=== PATIENT | female | born 1965 | race Hispanic/Latino ===

== ENCOUNTER 2021-03-02 19:25 | Observation (INO) | payer OTHER ==
--- NOTE | 2021-03-02 19:36 | Emergency Department Report ---
HPI - General Time Seen by Provider: 03/02/21 19:27 - HPI HPI: 55-year-old female with reported history of prior CVA with memory difficulties and a heart monitor for unknown reasons is brought in as a stroke alert by EMS. Her last known well time was at 5:30 PM. Apparently the patient developed ataxia, slurred speech and then started to have blinking on the left side with a left-sided droop and gaze deviation to the left. The patient is unable to communicate but can follow commands. Further details of the HPI are thus limited due to the patient's current clinical condition. ED Review of Systems ROS: Stated complaint: POSS STROKE Other details as noted in HPI Comment: Unobtainable due to pts medical conditions Physical Exam - Physical Exam Vital Signs: Vital Signs 03/02/21 03/02/21 03/02/21 19:50 20:00 20:05 Temperature 98 F Pulse Rate 76 78 Respiratory 16 18 Rate Blood Pressure Blood Pressure 170/92 [Right] O2 Sat by Pulse 96 96 98 Oximetry 03/02/21 03/02/21 20:16 20:30 Temperature Pulse Rate 79 74 Respiratory 19 17 Rate Blood Pressure 159/125 147/80 Blood Pressure [Right] O2 Sat by Pulse 96 98 Oximetry Physical Exam: GENERAL: Well developed and well nourished. No acute distress HEAD: Normocephalic. No obvious signs of trauma. ENT: Moist mucous membranes. EYES: Pupils are equal round and reactive to light bilaterally. Gaze deviation to the left and up NECK: Supple. Full ROM is intact. Trachea is midline. LUNGS: Nonlabored breathing. Equal chest rise bilaterally. Clear to auscultation bilaterally. CARDIOVASCULAR: Regular rate and rhythm. No murmurs or rubs. VASCULAR: Cap refill < 2 seconds ABDOMEN: Abdomen is soft and nondistended. There is no significant tenderness, guarding or rebound. SKIN: Skin is warm and dry NEURO: Patient is awake and alert. She is conscious and able to follow my commands. She has a left facial droop, twitching/blinking on the left, aphasia, and dysarthria but has normal strength in all 4 extremities and normal sensation. NIH score of 12. Unable to assess gait at this time. MUSCULOSKELETAL: No obvious deformities. No significant tenderness. BACK/SPINE: No midline tenderness or step-offs of the C/T/L spine. ED Medical Decision Making - Lab Data Result diagrams: 03/02/21 19:59 03/02/21 19:59 Lab Results 03/02/21 03/02/21 03/02/21 Range/Units 19:45 19:59 19:59 WBC 7.3 (4.5-11.0) K/mm3 RBC 4.40 (3.65-5.03) M/mm3 Hgb 13.3 (10.1-14.3) gm/dl Hct 39.3 (30.3-42.9) % MCV 90 (79-97) fl MCH 30 (28-32) pg MCHC 34 (30-34) % RDW 15.1 (13.2-15.2) % Plt Count 250 (140-440) K/mm3 Lymph % (Auto) 23.5 (13.4-35.0) % [place] % (Auto) 9.1 H (0.0-7.3) % Eos % (Auto) 3.9 (0.0-4.3) % Baso % (Auto) 1.2 (0.0-1.8) % Lymph # (Auto) 1.7 (1.2-5.4) K/mm3 [place] # (Auto) 0.7 (0.0-0.8) K/mm3 Eos # (Auto) 0.3 (0.0-0.4) K/mm3 Baso # (Auto) 0.1 (0.0-0.1) K/mm3 Seg Neutrophils % 62.3 (40.0-70.0) % Seg Neutrophils # 4.6 (1.8-7.7) K/mm3 PT 14.3 (12.2-14.9) Sec. INR 1.05 (0.87-1.13) APTT 25.4 (24.2-36.6) Sec. Thrombin Time 18.7 (15.1-19.6) Sec. Sodium (137-145) mmol/L Potassium (3.6-5.0) mmol/L Chloride (98-107) mmol/L Carbon Dioxide (22-30) mmol/L Anion Gap mmol/L BUN (7-17) mg/dL Creatinine (0.6-1.2) mg/dL Estimated GFR ml/min BUN/Creatinine Ratio % Glucose (65-100) mg/dL POC Glucose 98 (70-105) mg/dL Calcium (8.4-10.2) mg/dL Total Bilirubin (0.1-1.2) mg/dL AST (5-40) units/L ALT (7-56) units/L Alkaline Phosphatase (35-129) units/L Total Creatine Kinase (30-135) units/L CK-MB (CK-2) (0.0-4.0) ng/mL CK-MB (CK-2) Rel Index (0-4) Troponin T (0.00-0.029) ng/mL Total Protein (6.3-8.2) g/dL Albumin (3.9-5) g/dL Albumin/Globulin Ratio % Plasma/Serum Alcohol (0-0.07) % 03/02/21 03/02/21 03/02/21 Range/Units 19:59 19:59 19:59 WBC (4.5-11.0) K/mm3 RBC (3.65-5.03) M/mm3 Hgb (10.1-14.3) gm/dl Hct (30.3-42.9) % MCV (79-97) fl MCH (28-32) pg MCHC (30-34) % RDW (13.2-15.2) % Plt Count (140-440) K/mm3 Lymph % (Auto) (13.4-35.0) % [place] % (Auto) (0.0-7.3) % Eos % (Auto) (0.0-4.3) % Baso % (Auto) (0.0-1.8) % Lymph # (Auto) (1.2-5.4) K/mm3 [place] # (Auto) (0.0-0.8) K/mm3 Eos # (Auto) (0.0-0.4) K/mm3 Baso # (Auto) (0.0-0.1) K/mm3 Seg Neutrophils % (40.0-70.0) % Seg Neutrophils # (1.8-7.7) K/mm3 PT (12.2-14.9) Sec. INR (0.87-1.13) APTT (24.2-36.6) Sec. Thrombin Time (15.1-19.6) Sec. Sodium 131 L (137-145) mmol/L Potassium 4.0 (3.6-5.0) mmol/L Chloride 99.3 (98-107) mmol/L Carbon Dioxide 23 (22-30) mmol/L Anion Gap 13 mmol/L BUN 15 (7-17) mg/dL Creatinine 0.8 (0.6-1.2) mg/dL Estimated GFR > 60 ml/min BUN/Creatinine Ratio 19 % Glucose 96 (65-100) mg/dL POC Glucose (70-105) mg/dL Calcium 8.9 (8.4-10.2) mg/dL Total Bilirubin 0.40 (0.1-1.2) mg/dL AST 15 (5-40) units/L ALT 14 (7-56) units/L Alkaline Phosphatase 91 (35-129) units/L Total Creatine Kinase 128 (30-135) units/L CK-MB (CK-2) 1.8 (0.0-4.0) ng/mL CK-MB (CK-2) Rel Index 1.4 (0-4) Troponin T < 0.010 (0.00-0.029) ng/mL Total Protein 7.0 (6.3-8.2) g/dL Albumin 3.5 L (3.9-5) g/dL Albumin/Globulin Ratio 1.0 % Plasma/Serum Alcohol < 0.01 (0-0.07) % - EKG Data -: EKG Interpreted by Or - EKG Data 03/02/21 23:04 Normal sinus rhythm. Normal axis. Normal intervals. No ectopy. No significant ST segment or T wave abnormalities. - Radiology Data CHEST 1 VIEW 03/02/2021 7:53 PM INDICATION / CLINICAL INFORMATION: stroke. COMPARISON: None available. FINDINGS: SUPPORT DEVICES: Cardiac monitoring devices noted overlying the chest wall. HEART / MEDIASTINUM: No significant abnormality. LUNGS / PLEURA: No focal consolidation. No pleural effusion. Mild pulmonary vascular indistinctness. No pneumothorax. ADDITIONAL FINDINGS: No significant additional findings. IMPRESSION: 1. Mild pulmonary edema, otherwise no acute cardiopulmonary abnormality. Signer Name: Lew Zuniga DO Signed: 03/02/2021 8:01 PM Workstation Name: [id number] SCAN OF THE BRAIN: INDICATION: CODE STROKE [id number] LKW 1730 HYPERTEN, AMS LT SIDE WEAKNESS. TECHNIQUE: Routine CT head without contrast. Sagittal and coronal reformatted images were obtained. All CT scans at this location are performed using CT dose reduction for ALARA by means of automated exposure control. COMPARISON: None. FINDINGS: BRAIN / INTRACRANIAL CONTENTS: Hemorrhage:No intracranial hemorrhage; no subarachnoid hemorrhage Stroke mimics: No subdural or epidural hematoma or space taking lesion Acute/subacute territorial infarction: Vega-white matter interface: No blurring; normal Insular cortex: Normal Basal ganglia: Normal Wedge shaped parenchymal low density area: Not present Cortical sulci: Not effaced Lacunar infarctions: No acute lacunae Vasculopathy: Dense middle cerebral artery sign: Not present Internal carotid artery terminus: Normal Basilar artery:Normal Middle cerebral artery branches in the sylvian fissure (Dot sign): Normal Calcified embolus: Not present ASPECT score: 10 Chronic lesions: None White matter: Periventricular and deep hemispheric white matter are normal Craniocervical junction:No significant abnormality Orbits:No significant abnormality Paranasal sinuses/mastoids: Hypoplastic left maxillary sinus is opacified Additional findings: root Abscess around tooth #14 IMPRESSION: No intracerebral hemorrhage or stroke mimics; no evidence of acute/subacute territorial infarction This exam was performed as part of a code stroke protocol. The exam was completed at [facility] on 03/02/2021 6:40 PM. The exam was reviewed at 6:44 PM and ER physician was notified at 6:47 PM. Signer Name: Johnny Chandra MD Signed: 03/02/2021 6:48 PM Workstation Name: [id number] CTA NECK WITH CONTRAST HISTORY: "Stroke; left-sided weakness COMPARISON: None. TECHNIQUE: Routine CTA of the neck was performed. 3-D/MIP reformats were postprocessed. Percentage stenosis is determined by direct quantitative measurements of diseased internal carotid artery diameter compared with normal distal internal carotid artery reference segments or by criteria similar to NASCET where applicable.All CT scans at this location are performed using CT dose reduction for ALARA by means of automated exposure control CONTRAST: 100 ml of Omnipaque 350 FINDINGS: Aortic arch: No significant abnormality. Cervical vertebral arteries: No significant abnormality. Common carotid arteries: No significant abnormality. Carotid bifurcations: Right carotid bifurcation: Nonstenotic atherosclerotic plaque along the posterior wall; proximal right internal carotid artery normal Carotid bifurcation: Normal Cervical internal carotid arteries: No significant abnormality. Additional findings: None. IMPRESSION: 1. No significant abnormality. Signer Name: Johnny Chandra MD Signed: 03/02/2021 7:14 PM Workstation Name: [id number] CTA HEAD WITH CONTRAST HISTORY: Stroke COMPARISON: None. TECHNIQUE: Routine non-contrast CT Head, CTA of the head and post-contrast CT Head are performed. 3-D/MIP reformats postprocessed. All CT scans at this location are performed using CT dose reduction for MINGRA by means of automated exposure control CONTRAST: 100 ml of Omnipaque 350 FINDINGS: CTA Head: Intracranial vertebral arteries: No significant abnormality. Basilar artery: No significant abnormality. Posterior cerebral arteries: No significant abnormality. Intracranial internal carotid arteries: No significant abnormality. Anterior cerebral arteries: No significant abnormality. Middle cerebral arteries: Right M1 segment is normal Horizontal segment of left M1 segment normal; more than 50% stenoses in one of the branches of the left middle cerebral artery; branches of the middle cerebral artery in the sylvian fissure are normal Dural venous sinuses:Not optimally opacified. No significant abnormality. Additional find ings: None. IMPRESSION: More than 50% stenoses in one of the branches of left middle cerebral artery; basilar tip, posterior communicating artery, anterior communicating artery normal Signer Name: Johnny Chandra MD Signed: 03/02/2021 7:17 PM Workstation Name: [id number] - Medical Decision Making 55-year-old female with reported history of prior CVA brought in as a stroke alert by EMS for ataxia, slurred speech, and left-sided facial droop. The patient's last known well time was 5:30 PM. On my initial assessment, the patient has aphasia with dysarthria and left-sided facial droop with twitching/blinking on the left. More concerning, she has gaze deviation to the left and up. Her NIH stroke scale score for me is 12. Given possibility of atypical stroke presentation stroke alert order set was initiated including CT angiogram of the head and neck given the possibility of a large vessel occlusion. Very little information is available and there is no contact information for the patient's family. At 7:45 PM, I received a call from the radiologist who states that the Noncon head CT shows no evidence of hemorrhage or any other acute abnormalities. At 8:07 PM I spoke with Dr. Guzman of Teleneurology who has performed a teleneurology evaluation of the patient and states that her signs and symptoms are atypical but could be a stroke. He requests that we try to find out further information about the patient and whether she is on blood thinners. The patient's blood pressure is elevated at 170/90. He states that until we find out this information we should hold off on TPA. At 8:20 PM I spoke over the phone with Dr. Guzman again and he states he is reviewing the CTA and waiting for the patient's coags. Labs have resulted and reveal no significant leukocytosis or anemia. Creatinine is within normal range and there are no significant electrolyte abnormalities. At 8:35 PM, when I went to reassess the patient, her Kee is at the bedside. He provides further history and states that the patient has a history of TIA and takes baby aspirin but does not take a blood thinner. He states she has had prior episodes very similar to this in the past but they typically last 15 minutes and they do not last this long. The patient's facial droop and twitching has resolved at this time but she still has dysarthria. She is no longer aphasic. She attempted to walk to the bathroom and is with very unsteady gait. At 8:41 PM I spoke to Dr. Guzman again. He states that with this further information, coupled with the CTA which is negative for any large vessel occlusion and the fact that the patient's symptoms are improving, TPA is not indicated at this time. He recommends admission with MRI if the patient's symptoms do not completely resolve. At 9:25 PM, the patient is still with dysarthria and severe ataxia. At 9:30 PM I spoke with Dr. Garcia the on-call hospitalist regarding the case who accepts the patient for admission and will assume care. Critical Care Time: Yes Critical care time in (mins) excluding proc time.: 40 Critical care attestation.: If time is entered above; I have spent that time in minutes in the direct care of this critically ill patient, excluding procedure time. Critical care time was spent in the evaluation, assessment, work-up, and management of suspected stroke requiring multiple reassessments and consultation with specialist ED Disposition Clinical Impression: Stroke, Dysarthria, Ataxia Disposition: [id number] OP ADMIT IP TO THIS HOSP Is pt being admited?: Yes Condition: Fair
--- NOTE | 2021-03-02 19:52 | Cat Scan Report ---
NONENHANCED CT SCAN OF THE BRAIN: INDICATION: CODE STROKE [id number] LKW 1730 HYPERTEN, AMS LT SIDE WEAKNESS. TECHNIQUE: Routine CT head without contrast. Sagittal and coronal reformatted images were obtained. A ll CT scans at this location are performed using CT dose reduction for ALARA by means of automated ex posure control. COMPARISON: None. FINDINGS: BRAIN / INTRACRANIAL CONTENTS: Hemorrhage:No intracranial hemorrhage; no subarachnoid hemorrhage Stroke mimics: No subdural or epidural hematoma or space taking lesion Acute/subacute territorial infarction: Vega-white matter interface: No blurring; normal Insular cortex: Normal Basal ganglia: Normal Wedge shaped parenchymal low density area: Not present Cortical sulci: Not effaced Lacunar infarctions: No acute lacunae Vasculopathy: Dense middle cerebral artery sign: Not present Internal carotid artery terminus: Normal Basilar artery:Normal Middle cerebral artery branches in the sylvian fissure (Dot sign): Normal Calcified embolus: Not present ASPECT score: 10 Chronic lesions: None White matter: Periventricular and deep hemispheric white matter are normal Craniocervical junction:No significant abnormality Orbits:No significant abnormality Paranasal sinuses/mastoids: Hypoplastic left maxillary sinus is opacified Additional findings: root Abscess around tooth #14 IMPRESSION: No intracerebral hemorrhage or stroke mimics; no evidence of acute/subacute territorial infarction This exam was performed as part of a code stroke protocol. The exam was completed at [facility] on 03/02/2021 6:40 PM. The exam was reviewed at 6:44 PM and ER physician was notified at 6:47 PM. Signer Name: Johnny Chandra MD Signed: 03/02/2021 7:48 PM Workstation Name: [email or web address]
[2021-03-02] MEDS ORDERED: diphenhydrAMINE 50 MG/ML VIAL ONE (19:57)
[2021-03-02] MEDS ORDERED: dexAMETHasone 20 MG/5 ML VIAL ONE (19:58)
[2021-03-02 20:08] LABS: Basophils # (Auto) 0.1 K/mm3 (0.0-0.1); Basophils % (Auto) 1.2 % (0.0-1.8); Eosinophils # (Auto) 0.3 K/mm3 (0.0-0.4); Eosinophils % (Auto) 3.9 % (0.0-4.3); Hematocrit 39.3 % (30.3-42.9); Hemoglobin 13.3 gm/dl (10.1-14.3); Lymphocytes # (Auto) 1.7 K/mm3 (1.2-5.4); Lymphocytes % (Auto) 23.5 % (13.4-35.0); Mean Corpuscular HGB Conc 34 % (30-34); Mean Corpuscular Volume 90 fl (79-97); Monocytes # (Auto) 0.7 K/mm3 (0.0-0.8); Monocytes % (Auto) 9.1 % (0.0-7.3); Platelet Count 250 K/mm3 (140-440); Red Cell Distribution Width 15.1 % (13.2-15.2)
[2021-03-02] MEDS ORDERED: diphenhydrAMINE 50 MG/ML VIAL IV ONE (20:10)
[2021-03-02] MEDS ORDERED: dexAMETHasone 20 MG/5 ML VIAL IV ONE (20:10)
--- NOTE | 2021-03-02 20:18 | Cat Scan Report ---
CTA NECK WITH CONTRAST HISTORY: "Stroke; left-sided weakness COMPARISON: None. TECHNIQUE: Routine CTA of the neck was performed. 3-D/MIP reformats were postprocessed. Percentage s tenosis is determined by direct quantitative measurements of diseased internal carotid artery diamete r compared with normal distal internal carotid artery reference segments or by criteria similar to NA SCET where applicable.All CT scans at this location are performed using CT dose reduction for ALARA b y means of automated exposure control CONTRAST: 100 ml of Omnipaque 350 FINDINGS: Aortic arch: No significant abnormality. Cervical vertebral arteries: No significant abnormality. Common carotid arteries: No significant abnormality. Carotid bifurcations: Right carotid bifurcation: Nonstenotic atherosclerotic plaque along the posterior wall; proximal righ t internal carotid artery normal Carotid bifurcation: Normal Cervical internal carotid arteries: No significant abnormality. Additional findings: None. IMPRESSION: 1. No significant abnormality. Signer Name: Johnny Chandra MD Signed: 03/02/2021 8:14 PM Workstation Name: [id number]
--- NOTE | 2021-03-02 20:22 | Cat Scan Report ---
CTA HEAD WITH CONTRAST HISTORY: Stroke COMPARISON: None. TECHNIQUE: Routine non-contrast CT Head, CTA of the head and post-contrast CT Head are performed. 3-D /MIP reformats postprocessed. All CT scans at this location are performed using CT dose reduction for ALARA by means of automated exposure control CONTRAST: 100 ml of Omnipaque 350 FINDINGS: CTA Head: Intracranial vertebral arteries: No significant abnormality. Basilar artery: No significant abnormality. Posterior cerebral arteries: No significant abnormality. Intracranial internal carotid arteries: No significant abnormality. Anterior cerebral arteries: No significant abnormality. Middle cerebral arteries: Right M1 segment is normal Horizontal segment of left M1 segment normal; more than 50% stenoses in one of the branches of the le ft middle cerebral artery; branches of the middle cerebral artery in the sylvian fissure are normal Dural venous sinuses:Not optimally opacified. No significant abnormality. Additional findings: None. IMPRESSION: More than 50% stenoses in one of the branches of left middle cerebral artery; basilar tip, posterior communicating artery, anterior communicating artery normal Signer Name: Johnny Chandra MD Signed: 03/02/2021 8:17 PM Workstation Name: [id number]
--- NOTE | 2021-03-02 20:23 | Consultation ---
History of Present Illness History of present illness: [place] [facility] Consult Note # Demographics Consult Type: Acute Stroke Level 1 (0-4.5 hrs) Patient Location: Emergency Room First Name: Katie Last Name: Ivan Date of : 1965 Age: 55 Gender: Female Time of Initial Page ( Time): 03/02/2021, 19:57 Time of Return Call ( Time): 03/02/2021, 19:57 # HPI History: 55 year-old female with prior stroke presents with left gaze preference, aphasia, and generalized weakness. She was reportedly seen normal by a neighbor at [address] is negative. Past medical history is otherwise unavailable. Symptoms are variable and appear to be improving. # Scores Time of exam and NIHSS (): 03/02/2021, 19:57 Level of Consciousness 1a: [1] = Not alert; but arousable by minor stim LOC Questions 1b: [2] = Answers neither correctly LOC Commands 1c: [2] = Performs neither correctly Best Gaze 2: [1] = Partial gaze palsy Visual 3: [0] = No visual loss Facial Palsy 4: [0] = Normal symmetrical movements Motor Arm Left 5a: [1] = Drift Motor Arm Right 5b: [1] = Drift Motor Leg Left 6a: [2] = Some effort against gravity Motor Leg Right 6b: [2] = Some effort against gravity Limb Ataxia 7: [0] = Absent Sensory 8: [0] = Normal Best Language 9: [2] = Severe aphasia Dysarthria 10: [1] = [id number] dysarthria Extinction and Inattention 11: [0] = No abnormality NIHSS Total: 15 # Exam Vitals: vital signs reviewed # PMH-FH-SH Past Medical History: stroke # Data Head CT: no bleed CTA Head: no large vessel occlusion CTA Neck: patent vessels # Assessment Impression: Acute encephalopathy - possible stroke, exam with variability, appears to be improving # Plan Thrombolytic/Intervention: NOT IV Thrombolysis or IA Intervention candidate Thrombolytic Exclusion: unknown medical history (unknown if taking blood thinners), improving symptoms Intraarterial Exclusion: no large vessel occlusion (LVO) Labs: CBC comprehensive metabolic panel Imaging: (urgency: STAT): CT Angiogram Head and CT Angiogram Neck AND call back with results if abnormal Imaging: (urgency: routine): If symptoms persist without clear cause, obtain brain MRI. Therapy/Evaluation: NPO until swallow evaluation PT/OT evaluation speech/swallow consultation Other: permissive hypertension telemetry monitoring I have discussed my recommendations with the referring provider Disposition: admit Medications and Allergies Allergies Allergy/AdvReac Type Severity Reaction Status Date / Time Unable to Assess Allergy Unverified 03/02/21 20:10 Physical Examination - Vital Signs Vital Signs: Vital Signs Temp Pulse Resp BP Pulse Ox 98 F 78 18 170/92 98 03/02/21 20:05 03/02/21 20:05 03/02/21 20:05 03/02/21 20:05 03/02/21 20:05 Results - Laboratory Findings CBC and BMP: 03/02/21 19:59 Abnormal Lab Findings: Abnormal Labs 03/02/21 19:59 [place] % (Auto) 9.1 H
[2021-03-02 20:27] LABS: Creatine Kinase MB 1.8 ng/mL (0.0-4.0)
[2021-03-02 20:28] LABS: Alanine Aminotransferase 14 units/L (7-56); Albumin 3.5 g/dL (3.9-5); BUN/Creatinine Ratio 19; Blood Urea Nitrogen 15 mg/dL (7-17); Calcium 8.9 mg/dL (8.4-10.2); Hemolysis Index 24
[2021-03-02 20:32] LABS: INR 1.05 (0.87-1.13)
[2021-03-02 20:33] LABS: Partial Thromboplastin Time 25.4 Sec. (24.2-36.6); Thrombin Time 18.7 Sec. (15.1-19.6)
[2021-03-02] MEDS ORDERED: ASPIRIN 81 MG TAB CHEW PO ONE (20:42)
--- NOTE | 2021-03-02 21:05 | XRay Report ---
CHEST 1 VIEW 03/02/2021 7:53 PM INDICATION / CLINICAL INFORMATION: stroke. COMPARISON: None available. FINDINGS: SUPPORT DEVICES: Cardiac monitoring devices noted overlying the chest wall. HEART / MEDIASTINUM: No significant abnormality. LUNGS / PLEURA: No focal consolidation. No pleural effusion. Mild pulmonary vascular indistinctness. No pneumothorax. ADDITIONAL FINDINGS: No significant additional findings. IMPRESSION: 1. Mild pulmonary edema, otherwise no acute cardiopulmonary abnormality. Signer Name: Lew Zuniga DO Signed: 03/02/2021 9:01 PM Workstation Name: [id number]
[2021-03-02] MEDS ORDERED: MORPHINE 4 MG/1 ML INJ IV PRN (23:13)
[2021-03-02] MEDS ORDERED: PROMETHAZINE 25 MG RECT SUPP PR PRN (23:13)
[2021-03-02] MEDS ORDERED: METOCLOPRAMIDE 10 MG TAB PO PRN (23:13)
[2021-03-02] MEDS ORDERED: MAGNESIUM HYDROXIDE (MOM) ORAL LIQD UDC PO PRN ×2 (23:13)
[2021-03-02] MEDS ORDERED: MORPHINE 2 MG/1 ML INJ IV PRN (23:13)
[2021-03-02] MEDS ORDERED: ACETAMINOPHEN 325 MG TAB PO PRN ×2 (23:13)
[2021-03-02] MEDS ORDERED: ONDANSETRON 4 MG/2 ML INJ IV PRN ×2 (23:13)
--- NOTE | 2021-03-02 23:28 | History and Physical Report ---
History of Present Illness Date of examination: 03/02/21 Date of admission: 03/02/21 21:38 Chief complaint: Ataxia Slurred Speech History of present illness: 55-year-old white female with known history of prior CVA brought into the emergency room today by EMS for possible CVA. Patient was said to have developed ataxia and slurred speech started having repetitive blinking of eyes on the left side and also left-sided droop and left gaze deviation. Last well-known time was about 5:30 PM today. Patient is said to have history of TIA in the past. She was able to communicate but had some slurred speech and difficulty expressing herself. She denies any fever or chills, no headache or dizziness, no diaphoresis, no chest pain or shortness of breath, no nausea or vomiting and no abdominal pain. Patient denies any hematuria or dysuria. Work-up in the emergency room today CT of the head did not reveal any acute abnormality. CTA head and neck shows more than 50% stenosis in one of the branches of the left middle cerebral artery. Labs were unremarkable except for mild hyponatremia of 131. Patient was evaluated by the tele-neurologist and plan is to work patient up for possible CVA. Past History Past Medical History: hypertension Past Surgical History: No surgical history Family history: no significant family history Medications and Allergies Allergies Allergy/AdvReac Type Severity Reaction Status Date / Time No Known Allergies Allergy Unverified 03/02/21 22:54 Active Meds: Active Medications Acetaminophen (Acetaminophen 325 Mg Tab) 650 mg PO Q4H PRN PRN Reason: Pain MILD(1-3)/Fever >100.5/LEMON Acetaminophen (Acetaminophen 325 Mg Tab) 650 mg PO Q4H PRN PRN Reason: Pain, Mild (1-3) Aspirin (Aspirin 325 Mg Tab) 325 mg PO QDAY DERECK Atorvastatin Calcium (Atorvastatin 40 Mg Tab) 40 mg PO QHS DERECK Bisacodyl (Bisacodyl 10 Mg Rect Supp) 10 mg MA QDAY PRN PRN Reason: Constipation Heparin Sodium (Porcine) (Heparin 5,000 Unit/1 Ml Vial) 5,000 unit SUB-Q Q8HR DERECK Magnesium Hydroxide (Magnesium Hydroxide (Mom) Oral Liqd Udc) 30 ml PO Q4H PRN PRN Reason: Constipation Magnesium Hydroxide (Magnesium Hydroxide (Mom) Oral Liqd Udc) 30 ml PO Q4H PRN PRN Reason: Constipation Metoclopramide HCl (Metoclopramide 10 Mg Tab) 10 mg PO Q6H PRN PRN Reason: Nausea And Vomiting Morphine Sulfate (Morphine 2 Mg/1 Ml Inj) 2 mg IV Q4H PRN PRN Reason: Pain, Moderate (4-6) Morphine Sulfate (Morphine 4 Mg/1 Ml Inj) 4 mg IV Q4H PRN PRN Reason: Pain , Severe (7-10) Ondansetron HCl (Ondansetron 4 Mg/2 Ml Inj) 4 mg IV Q8H PRN PRN Reason: Nausea And Vomiting Ondansetron HCl (Ondansetron 4 Mg/2 Ml Inj) 4 mg IV Q8H PRN PRN Reason: Nausea And Vomiting Promethazine HCl (Promethazine 25 Mg Rect Supp) 25 mg MA Q6H PRN PRN Reason: Nausea And Vomiting Sodium Chloride (Sodium Chloride 0.9% 10 Ml Flush Syringe) 10 ml IV BID DERECK Sodium Chloride (Sodium Chloride 0.9% 10 Ml Flush Syringe) 10 ml IV PRN PRN PRN Reason: LINE FLUSH Sodium Chloride (Sodium Chloride 0.9% 10 Ml Flush Syringe) 10 ml INJ PRN PRN PRN Reason: LINE FLUSH Review of Systems Constitutional: no fever, no chills Ears, nose, mouth and throat: no nasal congestion, no sore throat Cardiovascular: no chest pain, no palpitations Respiratory: no cough, no shortness of breath Gastrointestinal: no abdominal pain, no nausea, no vomiting, no diarrhea Genitourinary Female: no pelvic pain, no flank pain, no dysuria, no hematuria Musculoskeletal: no neck pain, no low back pain Integumentary: no rash, no pruritis Neurological: ataxia, aphasia, change in speech, no headaches, no confusion Psychiatric: no anxiety, no depression Endocrine: no polyphagia, no polydipsia, no polyuria, no nocturia Exam - Constitutional Vitals: Temp Pulse Resp BP Pulse Ox 98 F 74 17 147/80 98 03/02/21 20:05 03/02/21 20:30 03/02/21 20:30 03/02/21 20:30 03/02/21 20:30 General appearance: Present: no acute distress, well-nourished - EENT Eyes: Present: PERRL, EOM intact. Absent: scleral icterus ENT: hearing intact, clear oral mucosa, dentition normal - Neck Neck: Present: supple, normal ROM - Respiratory Respiratory effort: normal Respiratory: bilateral: CTA - Cardiovascular Rhythm: regular Heart Sounds: Present: S1 & S2. Absent: gallop, systolic murmur, diastolic murmur, rub, click - Extremities Extremities: no ischemia, pulses intact, pulses symmetrical, No edema, normal temperature, normal color, Full ROM Peripheral Pulses: within normal limits - Abdominal General gastrointestinal: Present: soft, non-tender, non-distended, normal bowel sounds. Absent: mass - Integumentary Integumentary: Present: clear, warm, dry. Absent: rash - Musculoskeletal Musculoskeletal: strength equal bilaterally - Psychiatric Psychiatric: appropriate mood/affect, intact judgment & insight, memory intact, cooperative - Neurologic Neurologic: CNII-XII intact, no focal deficits, moves all extremities, other (Has some dysarthria) HEART Score - HEART Score Troponin: Troponin T < 0.010 ng/mL (0.00-0.029) 03/02/21 19:59 Results - Labs CBC & Chem 7: 03/02/21 19:59 03/02/21 19:59 Labs: Abnormal lab results 03/02/21 03/02/21 Range/Units 19:59 19:59 [place] % (Auto) 9.1 H (0.0-7.3) % Sodium 131 L (137-145) mmol/L Albumin 3.5 L (3.9-5) g/dL Assessment and Plan - Patient Problems (1) Stroke Current Visit: Yes Status: Acute Plan to address problem: Patient be placed on daily aspirin and statin. We will schedule for carotid Doppler and MRI of the brain. Consult placed to neurology for evaluation. (2) DVT prophylaxis Current Visit: Yes Status: Acute Plan to address problem: Patient placed on subcutaneous heparin. (3) Full code status Current Visit: Yes Status: Acute Plan to address problem: Patient is a full code.
[2021-03-03 05:00] LABS: Hematocrit 40.1 % (30.3-42.9); Hemoglobin 13.9 gm/dl (10.1-14.3); Mean Corpuscular HGB Conc 35 % (30-34); Mean Corpuscular Volume 88 fl (79-97); Platelet Count 291 K/mm3 (140-440); Red Blood Count 4.56 M/mm3 (3.65-5.03); Red Cell Distribution Width 14.8 % (13.2-15.2)
[2021-03-03 05:17] LABS: INR 1.09 (0.87-1.13)
[2021-03-03 05:21] LABS: Blood Urea Nitrogen 17 mg/dL (7-17); Calcium 9.2 mg/dL (8.4-10.2); Chol/HDL Ratio 2.81 %; HDL Cholesterol 43 mg/dL (40-59); Hemolysis Index 3; LDL Cholesterol,Direct 77 mg/dL (50-130)
[2021-03-03] MEDS: HEPARIN 5,000 UNIT/1 ML VIAL SUB-Q SCH ×3 (05:26→21:27)
[2021-03-03 05:35] LABS: BUN/Creatinine Ratio 24
[2021-03-03 07:20] LABS: RBC Morphology Normal; Total Cells Counted 100
[2021-03-03 07:21] LABS: Platelet Estimate Consistent w Auto
[2021-03-03] MEDS: ASPIRIN 325 MG TAB PO SCH (09:13)
--- NOTE | 2021-03-03 09:51 | Progress Note ---
Assessment and Plan Assessment and plan: Acute CVA Acute encephalopathy. Etiology secondary to #1 Hyponatremia Hypertension. 03/03/2021. CT of the head did not reveal any acute abnormality. CTA head and neck shows more than 50% stenosis in one of the branches of the left middle cerebral artery. Continue IV fluid of normal saline for hyponatremia. Follow- up echocardiogram and MRI. Neurology consultation. History Interval history: No new issues overnight Hospitalist Physical - Constitutional Vitals: Temp Pulse Resp BP Pulse Ox 97.4 F L 72 16 112/59 95 03/03/21 07:30 03/03/21 07:30 03/03/21 07:30 03/03/21 07:30 03/03/21 07:30 General appearance: Present: no acute distress, well-nourished - EENT Eyes: Present: PERRL, EOM intact ENT: hearing intact, clear oral mucosa, dentition normal - Neck Neck: Present: supple, normal ROM - Respiratory Respiratory effort: normal Respiratory: bilateral: CTA - Cardiovascular Rhythm: regular Heart Sounds: Present: S1 & S2. Absent: gallop, rub - Extremities Extremities: no ischemia, No edema, Full ROM - Abdominal General gastrointestinal: soft, non-tender, non-distended, normal bowel sounds - Integumentary Integumentary: Present: clear, warm, dry - Neurologic Neurologic: CNII-XII intact, moves all extremities HEART Score - HEART Score Troponin: Troponin T < 0.010 ng/mL (0.00-0.029) 03/03/21 04:26 Results - Labs CBC & Chem 7: 03/03/21 04:26 03/03/21 04:26 Labs: Laboratory Last Values WBC 9.3 K/mm3 (4.5-11.0) 03/03/21 04:26 RBC 4.56 M/mm3 (3.65-5.03) 03/03/21 04:26 Hgb 13.9 gm/dl (10.1-14.3) 03/03/21 04:26 Hct 40.1 % (30.3-42.9) 03/03/21 04:26 MCV 88 fl (79-97) 03/03/21 04:26 MCH 31 pg (28-32) 03/03/21 04:26 MCHC 35 % (30-34) H 03/03/21 04:26 RDW 14.8 % (13.2-15.2) 03/03/21 04:26 Plt Count 291 K/mm3 (140-440) 03/03/21 04:26 Lymph % (Auto) 23.5 % (13.4-35.0) 03/02/21 19:59 [place] % (Auto) 9.1 % (0.0-7.3) H 03/02/21 19:59 Eos % (Auto) 3.9 % (0.0-4.3) 03/02/21 19:59 Baso % (Auto) 1.2 % (0.0-1.8) 03/02/21 19:59 Lymph # (Auto) 1.7 K/mm3 (1.2-5.4) 03/02/21 19:59 [place] # (Auto) 0.7 K/mm3 (0.0-0.8) 03/02/21 19:59 Eos # (Auto) 0.3 K/mm3 (0.0-0.4) 03/02/21 19:59 Baso # (Auto) 0.1 K/mm3 (0.0-0.1) 03/02/21 19:59 Add Manual Diff Complete 03/03/21 04:26 Total Counted 100 03/03/21 04:26 Seg Neutrophils % Lead Generation Marketing Manager 03/03/21 04:26 Seg Neuts % (Manual) 94.0 % (40.0-70.0) H 03/03/21 04:26 Lymphocytes % (Manual) 5.0 % (13.4-35.0) L 03/03/21 04:26 Monocytes % (Manual) 1.0 % (0.0-7.3) 03/03/21 04:26 Nucleated RBC % Not Reportable 03/03/21 04:26 Seg Neutrophils # 4.6 K/mm3 (1.8-7.7) 03/02/21 19:59 Seg Neutrophils # Man 8.7 K/mm3 (1.8-7.7) H 03/03/21 04:26 Band Neutrophils # 0.0 K/mm3 03/03/21 04:26 Lymphocytes # (Manual) 0.5 K/mm3 (1.2-5.4) L 03/03/21 04:26 Abs React Lymphs (Man) 0.0 K/mm3 03/03/21 04:26 Monocytes # (Manual) 0.1 K/mm3 (0.0-0.8) 03/03/21 04:26 Eosinophils # (Manual) 0.0 K/mm3 (0.0-0.4) 03/03/21 04:26 Basophils # (Manual) 0.0 K/mm3 (0.0-0.1) 03/03/21 04:26 Metamyelocytes # 0.0 K/mm3 03/03/21 04:26 Myelocytes # 0.0 K/mm3 03/03/21 04:26 Promyelocytes # 0.0 K/mm3 03/03/21 04:26 Blast Cells # 0.0 K/mm3 03/03/21 04:26 WBC Morphology Not Reportable 03/03/21 04:26 Hypersegmented Neuts Not Reportable 03/03/21 04:26 Hyposegmented Neuts Not Reportable 03/03/21 04:26 Hypogranular Neuts Not Reportable 03/03/21 04:26 Smudge Cells Not Reportable 03/03/21 04:26 Toxic Granulation Not Reportable 03/03/21 04:26 Toxic Vacuolation Not Reportable 03/03/21 04:26 Dohle Bodies Not Reportable 03/03/21 04:26 Pelger-Huet Anomaly Not Reportable 03/03/21 04:26 Kendra Rods Not Reportable 03/03/21 04:26 Platelet Estimate Consistent w auto 03/03/21 04:26 Clumped Platelets Not Reportable 03/03/21 04:26 Plt Clumps, EDTA Not Reportable 03/03/21 04:26 Large Platelets Not Reportable 03/03/21 04:26 Giant Platelets Not Reportable 03/03/21 04:26 Platelet Satelliting Not Reportable 03/03/21 04:26 Plt Morphology Comment Not Reportable 03/03/21 04:26 RBC Morphology Normal 03/03/21 04:26 Dimorphic RBCs Not Reportable 03/03/21 04:26 Polychromasia Not Reportable 03/03/21 04:26 Hypochromasia Not Reportable 03/03/21 04:26 Poikilocytosis Not Reportable 03/03/21 04:26 Anisocytosis Not Reportable 03/03/21 04:26 Microcytosis Not Reportable 03/03/21 04:26 Macrocytosis Not Reportable 03/03/21 04:26 Spherocytes Not Reportable 03/03/21 04:26 Pappenheimer Bodies Not Reportable 03/03/21 04:26 Sickle Cells Not Reportable 03/03/21 04:26 Target Cells Not Reportable 03/03/21 04:26 Tear Drop Cells Not Reportable 03/03/21 04:26 Ovalocytes Not Reportable 03/03/21 04:26 Helmet Cells Not Reportable 03/03/21 04:26 Newman-Shelley Bodies Not Reportable 03/03/21 04:26 [place] Rings Not Reportable 03/03/21 04:26 [place] Cells Not Reportable 03/03/21 04:26 Bite Cells Not Reportable 03/03/21 04:26 Crenated Cell Not Reportable 03/03/21 04:26 Elliptocytes Not Reportable 03/03/21 04:26 Acanthocytes (Spur) Not Reportable 03/03/21 04:26 Rouleaux Not Reportable 03/03/21 04:26 Hemoglobin C Crystals Not Reportable 03/03/21 04:26 Schistocytes Not Reportable 03/03/21 04:26 Malaria parasites Not Reportable 03/03/21 04:26 David Bodies Not Reportable 03/03/21 04:26 Hem Pathologist Commnt No 03/03/21 04:26 PT 14.7 Sec. (12.2-14.9) 03/03/21 04:26 INR 1.09 (0.87-1.13) 03/03/21 04:26 APTT 25.4 Sec. (24.2-36.6) 03/02/21 19:59 Thrombin Time 18.7 Sec. (15.1-19.6) 03/02/21 19:59 Sodium 135 mmol/L (137-145) L 03/03/21 04:26 Potassium 4.2 mmol/L (3.6-5.0) 03/03/21 04:26 Chloride 102.7 mmol/L (98-107) 03/03/21 04:26 Carbon Dioxide 23 mmol/L (22-30) 03/03/21 04:26 Anion Gap 14 mmol/L 03/03/21 04:26 BUN 17 mg/dL (7-17) 03/03/21 04:26 Creatinine 0.7 mg/dL (0.6-1.2) 03/03/21 04:26 Estimated GFR > 60 ml/min 03/03/21 04:26 BUN/Creatinine Ratio 24 % 03/03/21 04:26 Glucose 175 mg/dL (65-100) H 03/03/21 04:26 POC Glucose 98 mg/dL (70-105) 03/02/21 19:45 Calcium 9.2 mg/dL (8.4-10.2) 03/03/21 04:26 Total Bilirubin 0.40 mg/dL (0.1-1.2) 03/02/21 19:59 AST 15 units/L (5-40) 03/02/21 19:59 ALT 14 units/L (7-56) 03/02/21 19:59 Alkaline Phosphatase 91 units/L (35-129) 03/02/21 19:59 Total Creatine Kinase 128 units/L (30-135) 03/02/21 19:59 CK-MB (CK-2) 1.8 ng/mL (0.0-4.0) 03/02/21 19:59 CK-MB (CK-2) Rel Index 1.4 (0-4) 03/02/21 19:59 Troponin T < 0.010 ng/mL (0.00-0.029) 03/03/21 04:26 Total Protein 7.0 g/dL (6.3-8.2) 03/02/21 19:59 Albumin 3.5 g/dL (3.9-5) L 03/02/21 19:59 Albumin/Globulin Ratio 1.0 % 03/02/21 19:59 Triglycerides 52 mg/dL (2-149) 03/03/21 04:26 Cholesterol 121 mg/dL (50-199) 03/03/21 04:26 LDL Cholesterol Direct 77 mg/dL (50-130) 03/03/21 04:26 HDL Cholesterol 43 mg/dL (40-59) 03/03/21 04:26 Cholesterol/HDL Ratio 2.81 % 03/03/21 04:26 Plasma/Serum Alcohol < 0.01 % (0-0.07) 03/02/21 19:59 Active Medications - Current Medications Current Medications: Generic Name Dose Route Start Last Admin Trade Name Freq PRN Reason Stop Dose Admin Acetaminophen 650 mg 03/02/21 23:13 Acetaminophen 325 Mg Tab PO Q4H PRN Pain, Mild (1-3) Aspirin 325 mg 03/03/21 10:00 03/03/21 09:13 Aspirin 325 Mg Tab PO 325 mg QDAY DERECK Administration Atorvastatin Calcium 40 mg 03/03/21 22:00 Atorvastatin 40 Mg Tab PO QHS DERECK Bisacodyl 10 mg 03/02/21 23:13 Bisacodyl 10 Mg Rect Supp VA QDAY PRN Constipation Heparin Sodium (Porcine) 5,000 unit 03/03/21 06:00 03/03/21 05:26 Heparin 5,000 Unit/1 Ml Vial SUB-Q 5,000 unit Q8HR DERECK Administration Magnesium Hydroxide 30 ml 03/02/21 23:13 Magnesium Hydroxide (Mom) Oral Liqd Udc PO Q4H PRN Constipation Metoclopramide HCl 10 mg 03/02/21 23:13 Metoclopramide 10 Mg Tab PO Q6H PRN Nausea And Vomiting Morphine Sulfate 2 mg 03/02/21 23:13 Morphine 2 Mg/1 Ml Inj IV Q4H PRN Pain, Moderate (4-6) Morphine Sulfate 4 mg 03/02/21 23:13 Morphine 4 Mg/1 Ml Inj IV Q4H PRN Pain , Severe (7-10) Ondansetron HCl 4 mg 03/02/21 23:13 Ondansetron 4 Mg/2 Ml Inj IV Q8H PRN Nausea And Vomiting Promethazine HCl 25 mg 03/02/21 23:13 Promethazine 25 Mg Rect Supp VA Q6H PRN Nausea And Vomiting Sodium Chloride 10 ml 03/03/21 10:00 03/03/21 09:13 Sodium Chloride 0.9% 10 Ml Flush Syringe IV 10 ml BID DERECK Administration Sodium Chloride 10 ml 03/02/21 23:13 Sodium Chloride 0.9% 10 Ml Flush Syringe IV PRN PRN LINE FLUSH
--- NOTE | 2021-03-03 13:29 | Consultation ---
History of Present Illness Consult date: 03/03/21 Reason for Consult: CVA Chief complaint: "I go in and out of consciousness" History of present illness: 55 yo female wth htn, recent diagnosis of a "minor stroke" in 09/2020 w/ a loop recorder, presents with an episode where she feels like she goes in and out of consciousness and has difficulty with her speech and feels like the left side of her face is "drawn up" and feels like her left leg is "of". Currently, afther episode she still notes that her speech is not back to normal and that sometimes she is not able to close her eyes because of episodic twitching of her eyes. Past History Past Medical History: hypertension Past Surgical History: No surgical history Family history: no significant family history Medications and Allergies Allergies Allergy/AdvReac Type Severity Reaction Status Date / Time No Known Allergies Allergy Unverified 03/02/21 22:54 Active Meds: Active Medications Acetaminophen (Acetaminophen 325 Mg Tab) 650 mg PO Q4H PRN PRN Reason: Pain, Mild (1-3) Aspirin (Aspirin 325 Mg Tab) 325 mg PO QDAY [facility] Last Admin: 03/03/21 09:13 Dose: 325 mg Documented by: Atorvastatin Calcium (Atorvastatin 40 Mg Tab) 40 mg PO QHS DERECK Bisacodyl (Bisacodyl 10 Mg Rect Supp) 10 mg CA QDAY PRN PRN Reason: Constipation Heparin Sodium (Porcine) (Heparin 5,000 Unit/1 Ml Vial) 5,000 unit SUB-Q Q8HR [facility] Last Admin: 03/03/21 05:26 Dose: 5,000 unit Documented by: Sodium Chloride (Nacl 0.9% 1000 Ml) 1,000 mls @ 75 mls/hr IV DIRECT DERECK Magnesium Hydroxide (Magnesium Hydroxide (Mom) Oral Liqd Udc) 30 ml PO Q4H PRN PRN Reason: Constipation Metoclopramide HCl (Metoclopramide 10 Mg Tab) 10 mg PO Q6H PRN PRN Reason: Nausea And Vomiting Morphine Sulfate (Morphine 2 Mg/1 Ml Inj) 2 mg IV Q4H PRN PRN Reason: Pain, Moderate (4-6) Morphine Sulfate (Morphine 4 Mg/1 Ml Inj) 4 mg IV Q4H PRN PRN Reason: Pain , Severe (7-10) Ondansetron HCl (Ondansetron 4 Mg/2 Ml Inj) 4 mg IV Q8H PRN PRN Reason: Nausea And Vomiting Promethazine HCl (Promethazine 25 Mg Rect Supp) 25 mg CA Q6H PRN PRN Reason: Nausea And Vomiting Sodium Chloride (Sodium Chloride 0.9% 10 Ml Flush Syringe) 10 ml IV BID DERECK Last Admin: 03/03/21 09:13 Dose: 10 ml Documented by: Sodium Chloride (Sodium Chloride 0.9% 10 Ml Flush Syringe) 10 ml IV PRN PRN PRN Reason: LINE FLUSH Review of Systems All systems: negative (as per HPI;) Physical Examination - Vital Signs Vital Signs: Vital Signs Pulse Ox 96 03/02/21 19:50 - Physical Exam Narrative exam: Gen: nad; Head: normocephalic; Eyes: no gaze deviation; no ptosis; ENT: normal vocalization; CVS: warm and well-perfused; Pulm: no respiratory distress; GI: appears non-distended, protuberant; Ext: no cyanosis at distal extremities; Skin: no acute rash at distal extremities; Heme: no pathologic bruising at distal extremities; Neuro: alert, oriented to name, age, month, year, surroundings, +stuttering speech, no aphasia, CN 2 - PERRL, visual valle grossly intact, CN 3, 4, 6 - EOMI, CN 5 - facial sensation decreased on left to light touch, CN 7 - facial movement symmetric, CN 8 - hearing grossly intact, CN 9, 10 - uvula midline, CN 11 - shrug symmetric, CN 12 - tongue midline; Motor - at least 4/5 in all exts; Sensory - light touch decreased at left arm/leg, Cerebellar - fnf intact; difficulty w/ left hts, Gait - deferred secondary to fall risk; EPISODE: noted when patient had difficulty closing her eyes and noted both eyes to be twitching with concurrent stuttering of speech while responding appropriately; no movement of extremities noted; Results - Laboratory Findings CBC and BMP: 03/03/21 04:26 03/03/21 04:26 Abnormal Lab Findings: Abnormal Labs 03/02/21 03/02/21 03/03/21 19:59 19:59 04:26 MCHC 35 H [place] % (Auto) 9.1 H Seg Neuts % (Manual) 94.0 H Lymphocytes % (Manual) 5.0 L Seg Neutrophils # Man 8.7 H Lymphocytes # (Manual) 0.5 L Sodium 131 L Glucose Albumin 3.5 L 03/03/21 04:26 MCHC [place] % (Auto) Seg Neuts % (Manual) Lymphocytes % (Manual) Seg Neutrophils # Man Lymphocytes # (Manual) Sodium 135 L Glucose 175 H Albumin Assessment and Plan 55 yo female wth htn, recent diagnosis of a "minor stroke" in 09/2020 w/ a loop recorder, presents with an episode where she feels like she goes in and out of consciousness and has difficulty with her speech and feels like the left side of her face is "drawn up" and feels like her left leg is "of". Currently, afther episode she still notes that her speech is not back to normal and that sometimes she is not able to close her eyes because of episodic twitching of her eyes. 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 2. Stroke - MR Brain pending. 3. Hx of TIA - antiplatelet therapy; statin therapy for a goal LDL of 70. 4. HTN - permissive htn until MR results are available. 5. Seizure - transfer to a facility with cEEG monitoring to confirm these episodes. 6. Stuttering Speech - st evaluation/monitoring. Phoenix Merino MD Neurology [id number]
--- NOTE | 2021-03-03 14:10 | Electrocardiograph Report ---
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
--- NOTE | 2021-03-03 17:28 | Magnetic Resonance Report ---
MR brain wo con INDICATION / CLINICAL INFORMATION: 55 years Female; stroke. TECHNIQUE: Multiplanar, multisequence MR images of the brain were obtained. COMPARISON: None available. FINDINGS: BRAIN / INTRACRANIAL CONTENTS: No acute hemorrhage, mass effect, midline shift, hydrocephalus, or acu te, large territorial infarct. No chronic infarct or atrophy. Minimal, nonspecific white matter disea se identified. CRANIOCERVICAL JUNCTION: No significant abnormality. VASCULAR FLOW-VOIDS: No significant abnormality. ORBITS: No significant abnormality of visualized orbits. SINUSES / MASTOIDS: There is opacification of the left maxillary antrum. Extension cyst seen in the s phenoid sinus region, as well as the right maxillary antrum. Mild mucosal thickening in the ethmoids and inferior left mastoids. ADDITIONAL FINDINGS: None. IMPRESSION: 1. No focal mass, hemorrhage, hydrocephalus, or acute ischemia. 2. Sinus disease noted. Signer Name: Tien Abernathy MD, III Signed: 03/03/2021 5:24 PM Workstation Name: [id number]
--- NOTE | 2021-03-03 17:38 | Vascular Lab Report ---
DUPLEX DOPPLER ULTRASOUND CAROTID, BILATERAL INDICATION / CLINICAL INFORMATION: Stroke. COMPARISON: CTA neck 03/02/2021. FINDINGS: RIGHT CAROTID: No significant abnormality. - PLAQUE ESTIMATE (%): None. - CCA velocity: 64 cm/sec. - ICA peak systolic velocity: 82 cm/sec. - ICA/CCA PSV Ratio: Less than 2. Right Vertebral Artery: Antegrade flow. LEFT CAROTID: No significant abnormality. - PLAQUE ESTIMATE (%): None. - CCA velocity: 85 cm/sec. - ICA peak systolic velocity: 71 cm/sec. - ICA/CCA PSV Ratio: Less than 2. Left Vertebral Artery: Antegrade flow. IMPRESSION: 1. Right Internal Carotid Artery: Normal. No stenosis. 2. Left Internal Carotid Artery: Normal. No stenosis. Velocity criteria are extrapolated from diameter data as defined by the Society of Radiologists [place] [facility] Consensus Conference, Radiology 2003; 229;[id number]. NO STENOSIS (NORMAL) - Plaque = none; ICA PSV < 125 cm/sec; ICA/CCA PSV Ratio < 2.0 <50% STENOSIS - Plaque < 50%; ICA PSV < 125 cm/sec; ICA/CCA PSV Ratio < 2.0 50-69% STENOSIS - Plaque > 50%; ICA PSV = 125-230 cm/sec; ICA/CCA PSV Ratio = 2.0-4.0 >70% BUT <100% STENOSIS - Plaque > 50%; ICA PSV > 230 cm/sec; ICA/CCA PSV Ratio > 4.0 NEAR OCCLUSION - Plaque = visible lumen; ICA PSV = high/low/none; ICA/CCA PSV Ratio = variable TOTAL OCCLUSION - Plaque = no lumen; ICA PSV = none; ICA/CCA PSV Ratio = N/A Scribed by: Kathy Fuentes RDMS, RVT Scribed: 03/03/2021 11:15 AM I have reviewed the images, agree with this report, and edited this report as needed. Signer Name: Dakota Hinojosa MD Signed: 03/03/2021 5:34 PM Workstation Name: [id number]
[2021-03-03] MEDS: SODIUM CHLORIDE 0.9% 1000 ML 1,000 ML IV SCH (19:40)
[2021-03-04] MEDS: HEPARIN 5,000 UNIT/1 ML VIAL SUB-Q SCH ×2 (05:48→16:32)
[2021-03-04] MEDS: SODIUM CHLORIDE 0.9% 1000 ML 1,000 ML IV SCH (09:21)
[2021-03-04] MEDS: ASPIRIN 325 MG TAB PO SCH (09:21)
--- NOTE | 2021-03-04 09:56 | Discharge Summary ---
Providers - Providers Date of Admission: 03/02/21 21:38 Date of discharge: 03/04/21 Attending physician: YESICA KABA 03/02/21 23:14 Consult to Dietitian/Nutrition [CONS] Routine Physician Instructions: Reason For Exam: Reason for Consult: Nutrition Recommendations Reason for Consult: Diet education Occupational Therapy Evaluate and Treat [CONS] Routine Comment: Reason For Exam: Neuro deficits Physical Therapy Evaluation and Treat [CONS] Routine Comment: Reason For Exam: Neuro deficits 03/03/21 09:51 Consult to Physician [CONS] Routine Comment: Consulting Provider: BAILEY MAHARAJ Physician Instructions: Reason For Exam: CVA Primary care physician: CINDER CRANE OPERATOR Hospitalization Reason for admission: Dysarthria, encephalopathy Condition: Good Hospital course: 55 yo female wth htn, recent diagnosis of a "minor stroke" in 09/2020 w/ a loop recorder, presents with an episode where she feels like she goes in and out of consciousness and has difficulty with her speech and feels like the left side of her face is "drawn up" and feels like her left leg is "of". Currently, afther episode she still notes that her speech is not back to normal and that sometimes she is not able to close her eyes because of episodic twitching of her eyes. The patient had a CT scan and MRI which were found to be negative. No evidence of CVA. Neurology evaluated the patient and reported diagnosis of conversion disorder/malingering. PT evaluation recommended rolling walker and outpatient PT. Patient had no seizure activity during hospitalization. Therefore, patient will be discharged home and is to follow-up with neurology as an outpatient. Dedicated discharge time 35 minutes. Disposition: DC- TO HOME OR SELFCARE Final Discharge Diagnosis (Prints w/discharge instructions): Conversion disorder/malingering, no CVA Core Measure Documentation - Palliative Care Palliative Care/ Comfort Measures: Not Applicable - Core Measures Any of the following diagnoses?: none Exam - Constitutional Vitals: Temp Pulse Resp BP Pulse Ox 97.9 F 82 18 127/77 97 03/04/21 07:40 03/04/21 07:40 03/04/21 07:40 03/04/21 07:40 03/04/21 07:40 General appearance: Present: no acute distress, well-nourished - EENT Eyes: Present: PERRL ENT: hearing intact, clear oral mucosa - Neck Neck: Present: supple, normal ROM - Respiratory Respiratory effort: normal Respiratory: bilateral: CTA - Cardiovascular Heart Sounds: Present: S1 & S2. Absent: rub, click - Extremities Extremities: pulses symmetrical, No edema Peripheral Pulses: within normal limits - Abdominal General gastrointestinal: Present: soft, non-tender, non-distended, normal bowel sounds Female genitourinary: Present: normal - Integumentary Integumentary: Present: clear, warm, dry - Musculoskeletal Musculoskeletal: gait normal, strength equal bilaterally - Psychiatric Psychiatric: appropriate mood/affect, intact judgment & insight - Neurologic Neurologic: CNII-XII intact, moves all extremities Plan Activity: advance as tolerated Weight Bearing Status: Weight Bear as Tolerated Diet: regular Special Instructions: physical therapy Durable Medical Equipment Needed Upon Discharge: Walker-Rolling Follow up with: PRIMARY CARE, [Primary Care Provider] - 7 Days Prescriptions: Aspirin 325 mg PO QDAY #30 tablet AtorvaSTATin [Lipitor] 40 mg PO QHS #30 Metoprolol [Lopressor TAB] 50 mg PO BID #60
[2021-03-04 11:53] VITALS: BP 118/65
== END 2021-03-04 16:30 | disposition home or self-care (01) ==
LOC: ED 19:25 → 4A 21:38
PROVIDERS: ADMIT Internal Medicine Geriatric Medicine; ATTEND Hospitalist
DX: I63.9 Cerebral infarction, unspecified (principal); I10 Essential (primary) hypertension; R47.1 Dysarthria and anarthria; R29.715 NIHSS score 15; G93.40 Encephalopathy, unspecified; E87.1 Hypo-osmolality and hyponatremia; Z79.82 Long term (current) use of aspirin
CPT/HCPCS: 36415; 70450; 70496; 70498; 70551; 71045; 80048; 80053; 80061; 82550; 82553; 82962; 84484; 85025; 85610; 85670; 85730; 93005; 93306; 93880; 96361; 96372; 96374; 96375; 97162; 97165; 99291; A9270; G0378; J1100; J1200; J1644; J7030; Q9967; 80320; 85007; G0480